=== PATIENT | female | born 1995 | race Caucasian/White ===

== ENCOUNTER 2016-05-27 22:52 | Emergency (ER) | payer BC, OTHER ==
[~2016-05-27] VITALS: Ht 162.6 cm; Wt 80.8 kg
[~2016-05-27 22:52] MED LIST: IBUP-1050 PO
[2016-05-27 22:59] VITALS: TEMP 36.7; Ht 162.6 cm; Wt 80.8 kg
[2016-05-27] MEDS ORDERED: CIPROFLOXACIN HCL 0.3% OP SOLN 2.5 ML BTL OP ONE (23:45)
[2016-05-28 00:01] VITALS: BP 138/82; PULSE 80; O2SAT 98
--- NOTE | 2016-05-28 05:12 | EMERGENCY ROOM VISIT NOTE ---
ED Visit Note First contact with patient: 23:34 CHIEF COMPLAINT: Red, irritated eye HISTORY OF PRESENT ILLNESS: This 20-year-old female presents to the emergency department complaining of redness in the bilateral eyes which has gradually increased over the past day. Mild constant pain, dull in nature, which is rated as 7/10. There is mucoid discharge from the eyes and the lids were crusted this morning. No difficulty with vision. The patient does not wear contacts. There is no known trauma to the eye. The patient has not had any other upper respiratory symptoms. No headache, rash, nausea or vomiting. REVIEW OF SYSTEMS: A 6 system review of systems was completed with positives and pertinent negatives in the HPI. ALLERGIES: No known allergies MEDICATIONS: No chronic medications PMH: Otherwise healthy SOCIAL HISTORY: [employer] student who lives locally PHYSICAL EXAM: Vital Signs: Reviewed GENERAL: White female, in no acute distress , well-developed, well-nurished. SKIN: Warm, dry. No cyanosis. No petechia. EYES : Both pupils are equal round and reactive to light and accomadation, EOMs intact. There is mucoid discharge in eyes, both with moderate injection. There is no foreign body of the eyelid with lid eversion. Fundoscopic exam reveals no hemorrages, papiledema, or other abnormalities. No foreign body on the cornea, no hyphema. No corneal abrasion and no corneal ulcer. Visual Accuity is 20/40 right and 20/25 left without her glasses. EMERGENCY DEPARTMENT COURSE: I examined the patient. A slit lamp exam was performed and is as described above. Two drops of Ciloxin were put in the eyes and the patient was instructed as noted below. The patient was discharged home in good condition. Current/Historical Medications Scheduled PRN Ibuprofen (Advil), 400 MG PO DIRECTED PRN for Pain Allergies Coded Allergies: No Known Allergies (Unverified , 01/22/16) Vital Signs Date Time Temp Pulse Resp B/P Pulse Ox O2 Delivery O2 Flow Rate FiO2 05/28/16 00:01 80 16 138/82 98 05/27/16 22:59 36.7 18 135/83 98 Room Air Medications Administered Medications (Trade) Dose Ordered Sig/Andres Route Start Time Stop Time Status Last Admin Dose Admin Ciprofloxacin HCl (Ciprofloxacin 0.3% Op Soln) 2 drops NOW ONCE OP 05/27/16 23:45 05/27/16 23:46 DC 05/27/16 23:57 2 DROPS Departure Information Impression Primary Impression: Conjunctivitis Dispostion Home / Self-Care Condition GOOD Forms HOME CARE DOCUMENTATION FORM, IMPORTANT VISIT INFORMATION Patient Instructions [facility] Additional Instructions You were seen and evaluated today on an emergency basis only. This is not a substitute for, or an effort to provide, complete comprehensive medical care. It is not possible to recognize and treat all injuries or illnesses in a single emergency department visit. For this reason it is recommended that you followup with [facility] this week with any ongoing or persistent symptoms. Use Ciloxan Eye Drops: Instill 1-2 drops into the conjunctival sac every 2 hours while awake for 2 days and 1-2 drops every 4 hours while awake for the next 5 days You are welcome to return to the emergency department anytime with new, worsening, or concerning symptoms.
== END 2016-05-28 00:02 | disposition home or self-care (01) ==
LOC: C.EDB 22:53 → C.EDD 05-28 00:02
DX: H10.9 Unspecified conjunctivitis (principal)